=== PATIENT | female | born 1930 | race Caucasian/White ===

== ENCOUNTER 2018-04-28 12:31 | Emergency (ER) | payer MEDICARE, OTHER ==
[~2018-04-28] VITALS: Ht 154.9 cm; Wt 49.9 kg
[~2018-04-28 12:31] MED LIST: AMIT25TA PO; HYDR-971 PO; TRAM50TA PO
[2018-04-28] MEDS ORDERED: diazePAM 5 MG TABLET PO ONE (13:00)
[2018-04-28] MEDS ORDERED: MORPHINE SULFATE 4 MG/ML VIAL. IV ONE (13:00)
--- NOTE | 2018-04-28 13:07 | PHYS DOC ---
Past Medical History Past Medical History: Hypertension Additional Past Medical Histor: CHRONIC BACK PAIN Additional Past Surgical Histo: SEVERAL BACK SX Alcohol Use: None Drug Use: None Adult General Chief Complaint Chief Complaint: BACK PAIN - NO INJURY HPI HPI Patient is an 87-year-old female who presents to the emergency department for evaluation. She has a history of chronic lower back pain, and states that for the past several weeks, she has had gradual worsening of her left lower back pain, radiating down her left leg. She denies any incontinence, numbness, weakness, or saddle anesthesia. She has had a few back surgeries in the past, as well as pain injections, but the injections have not seemed to help improve her symptoms she denies any recent injuries. She denies any fever, chills, dysuria, hematuria, urinary frequency, dizziness, or lightheadedness. Movement and palpation of her back worsen her pain. There are no alleviating factors to her symptoms. She does take hydrocodone for her chronic back pain. Review of Systems Review of Systems Constitutional: Denies fever or chills [] Eyes: Denies change in visual acuity, redness, or eye pain [] HENT: Denies nasal congestion or sore throat [] Respiratory: Denies cough or shortness of breath [] Cardiovascular:The patient denies any shortness of breath, chest pain, palpitations, or orthopnea [] GI: Denies abdominal pain, nausea, vomiting, bloody stools or diarrhea [] : Denies dysuria or hematuria [] Musculoskeletal: Denies neck pain or joint pain [] Integument: Denies rash or skin lesions [] Neurologic: Denies headache, focal weakness or sensory changes [] Endocrine: Denies polyuria or polydipsia [] All other systems were reviewed and found to be within normal limits, except as documented in this note. Current Medications Current Medications Current Medications Medications (Trade) Dose Ordered Sig/Michelle Start Time Stop Time Status Last Admin Dose Admin Diazepam (Valium) 5 mg 1X ONCE 04/28/18 13:00 04/28/18 13:01 DC 04/28/18 13:05 5 MG Morphine Sulfate (Morphine Sulfate) 4 mg 1X ONCE 04/28/18 13:00 04/28/18 13:01 DC 04/28/18 13:21 4 MG Allergies Allergies Allergies Coded Allergies Type Severity Reaction Last Updated Verified Penicillins Allergy Unknown 08/24/13 Yes Physical Exam Physical Exam PHYSICAL EXAM: CONSTITUTIONAL: Well developed, well nourished HEAD: normocephalic, atraumatic EENT: PERRL, EOMI. Conjunctivae normal color, sclerae non-icteric; moist mucous membranes. NECK: Supple, non-tender; no meningismus. LUNGS: Lungs CTA, breathing even and unlabored. Normal air movement. HEART: Regular rate and rhythm, no murmur CHEST: No deformity; non-tender ABDOMEN: The abdomen is soft, there is mild right lower abdominal tenderness to palpation, without rebound or guarding. There are no pulsatile masses palpable, the remainder the abdomen is soft and non-tender, no masses or bruits. EXTREM: Normal ROM; no deformity, no calf tenderness. Normal pulses palpable in all extremities. There is no pedal edema. SKIN: No rash; no diaphoresis NEURO: Alert; normal speech and cognition; CN's grossly intact; strength grossly intact without focal deficit. BACK: No CVA TTP. There is tenderness to palpation left lower sacral area. Straight leg raise is positive on the left at about 50. There is no saddle anesthesia. There is no foot drop. Current Patient Data Vital Signs Vital Signs Date Time Temp Pulse Resp B/P (MAP) Pulse Ox O2 Delivery O2 Flow Rate FiO2 04/28/18 13:21 18 96 Room Air 04/28/18 12:44 98.0 102 147/76 (99) 98.0 Lab Values Laboratory Tests Test 04/28/18 12:34 04/28/18 13:14 Urine Collection Type Unknown Urine Color Yellow Urine Clarity Clear Urine pH 5.0 Urine Specific [place] >=1.030 Urine Protein Negative mg/dL (NEG-TRACE) Urine Glucose (UA) Negative mg/dL (NEG) Urine Ketones (Stick) Negative mg/dL (NEG) Urine Blood Negative (NEG) Urine Nitrite Negative (NEG) Urine Bilirubin Small (NEG) Urine Urobilinogen Dipstick 1.0 mg/dL (0.2 mg/dL) Urine Leukocyte Esterase Moderate (NEG) Urine RBC Occ /HPF (0-2) Urine WBC 5-10 /HPF (0-4) Urine Squamous Epithelial Cells Few /LPF Urine Bacteria Moderate /HPF (0-FEW) Urine Hyaline Casts Many /HPF Urine Mucus Mod /LPF White Blood Count 8.6 x10^3/uL (4.0-11.0) Red Blood Count 4.16 x10^6/uL (3.50-5.40) Hemoglobin 13.0 g/dL (12.0-15.5) Hematocrit 39.0 % (36.0-47.0) Mean Corpuscular Volume 94 fL (79-100) Mean Corpuscular Hemoglobin 31 pg (25-35) Mean Corpuscular Hemoglobin Concent 33 g/dL (31-37) Red Cell Distribution Width 13.6 % (11.5-14.5) Platelet Count 272 x10^3/uL (140-400) Neutrophils (%) (Auto) 68 % (31-73) Lymphocytes (%) (Auto) 22 % (24-48) L Monocytes (%) (Auto) 8 % (0-9) Eosinophils (%) (Auto) 1 % (0-3) Basophils (%) (Auto) 1 % (0-3) Neutrophils # (Auto) 5.9 x10^3uL (1.8-7.7) Lymphocytes # (Auto) 1.9 x10^3/uL (1.0-4.8) Monocytes # (Auto) 0.7 x10^3/uL (0.0-1.1) Eosinophils # (Auto) 0.0 x10^3/uL (0.0-0.7) Basophils # (Auto) 0.1 x10^3/uL (0.0-0.2) Sodium Level 137 mmol/L (136-145) Potassium Level 4.0 mmol/L (3.5-5.1) Chloride Level 101 mmol/L (98-107) Carbon Dioxide Level 27 mmol/L (21-32) Anion Gap 9 (6-14) Blood Urea Nitrogen 18 mg/dL (7-20) Creatinine 1.0 mg/dL (0.6-1.0) Estimated GFR (Cockcroft-Gault) 52.4 BUN/Creatinine Ratio 18 (6-20) Glucose Level 113 mg/dL (70-99) H Calcium Level 9.8 mg/dL (8.5-10.1) Total Bilirubin 0.4 mg/dL (0.2-1.0) Aspartate Amino Transferase (AST) 18 U/L (15-37) Alanine Aminotransferase (ALT) 15 U/L (14-59) Alkaline Phosphatase 62 U/L (46-116) Total Protein 7.4 g/dL (6.4-8.2) Albumin 3.9 g/dL (3.4-5.0) Albumin/Globulin Ratio 1.1 (1.0-1.7) Lipase 63 U/L (73-393) L Laboratory Tests 04/28/18 13:14 Laboratory Tests 04/28/18 13:14 EKG EKG [] Radiology/Procedures Radiology/Procedures [PROCEDURE: CT ABDOMEN PELVIS WO CONTRAST Examination: CT of the abdomen pelvis without contrast HISTORY: History of back pain, right lower quadrant abdominal pain COMPARISON: None available TECHNIQUE: Axial CT images of the abdomen pelvis were performed without contrast. Coronal and sagittal reformats are performed. Exposure: One or more of the following individualized dose reduction techniques were utilized for this examination: 1. Automated exposure control 2. Adjustment of the mA and/or kV according to patient size 3. Use of iterative reconstruction technique FINDINGS: Mild bibasilar lung airspace opacities likely atelectasis or infiltrates. No evidence of free air identified in the abdomen. The evaluation of the solid organs is limited due to lack of IV contrast. The evaluation of bowel is limited due to lack of oral contrast. The visualized noncontrasted liver demonstrates small cystic hypodensity in the left lobe of the liver measuring 4 mm probably cyst however it is difficult to characterize in this examination. The gallbladder is moderately distended. The visualized spleen, adrenals grossly appears unremarkable. The common bile duct appears prominent measuring 8.5 mm in transverse dimension. The stomach is mildly distended. Mild fatty atrophic changes of the pancreas. The small bowel is nondilated. The appendix is normal. Moderate amount of feces and gas noted in the colon. Few sigmoid colon diverticulosis. Urinary bladder is mildly distended. No evidence of intrarenal collecting system calculi or hydronephrosis. Moderate aortic atherosclerosis. Severe degenerative changes bilateral hip joints. Severe compression changes of L5 vertebral body with kyphoplasty changes. Severe degenerative changes identified in the lumbar spine. Lumbar hardware identified at L4-S1 vertebral levels on the left. IMPRESSION: 1. No acute intra-abdominal findings. 2. Moderately distended gallbladder with mild prominent appearing common bile duct. Correlate with lab values. Ultrasound right upper quadrant may be useful if gallbladder pathology or common bile duct pathology suspected. 3. Few sigmoid colon diverticulosis. ] Course & Med Decision Making Course & Med Decision Making Pertinent Labs and Imaging studies reviewed. (See chart for details) [2:25 PM: The patient's condition remains stable. She is feeling significantly better at this time. Her pain has significantly improved. She has been reexamined and is having no right upper quadrant tenderness or pain. I discussed test results with the patient, the need for close PCP follow-up, the possible need for outpatient ultrasound, and return precautions.] Dragon Disclaimer Dragon Disclaimer This electronic medical record was generated, in whole or in part, using a voice recognition dictation system. Departure Departure Impression: Primary Impression: Low back pain Additional Impression: UTI (urinary tract infection) Disposition: HOME, SELF-CARE Condition: STABLE Referrals: GERALD SIMMONS MD (PCP) Patient Instructions: Back Pain, Adult, Urinary Tract Infection Additional Instructions: Ibuprofen 200-400 mg every 6 hours may help improve your symptoms. Applying a heating pad to the affected area may help improve your symptoms. The prescribed medications may cause drowsiness-use caution while taking. Take the newly prescribed pain medications INSTEAD of your previously prescribed hydrocodone, not in addition to it. The gallbladder appeared a little distended on CAT scan today, and would warrant further evaluation with an ultrasound as an outpatient. Contact your primary care provider to arrange an outpatient ultrasound. Scripts Sulfamethoxazole/Trimethoprim (BACTRIM DS TABLET) 1 Each Tablet 1 TAB PO BID for 3 Days, #6 TAB Prov: JARVIS WINTERS MD 04/28/18 Diazepam (VALIUM) 5 Mg Tablet 5 MG PO QID, #20 TAB Prov: JARVIS WINTERS MD 04/28/18 Oxycodone/Apap 5-325 (PERCOCET 5-325 MG TABLET) 1 Each Tablet 1 TAB PO QID, #30 TAB Prov: JARVIS WINTERS MD 04/28/18 Problem Qualifiers JARVIS WINTERS MD Apr 28, 2018 13:07
[2018-04-28 13:33] LABS: BASO # 0.1 x10^3/uL (0.0-0.2); BASO % 1 % (0-3); EOS % 1 % (0-3); LYMPH # 1.9 x10^3/uL (1.0-4.8); LYMPH % 22 % (24-48); MEAN CORPUSCULAR HEMOGLOBIN 31 pg (25-35); MEAN CORPUSCULAR HGB CONC 33 g/dL (31-37); MEAN CORPUSCULAR VOLUME 94 fL (79-100); MONO # 0.7 x10^3/uL (0.0-1.1); MONO % 8 % (0-9); NEUT # 5.9 x10^3uL (1.8-7.7); NEUT % 68 % (31-73); PLATELET COUNT 272 x10^3/uL (140-400); RED BLOOD COUNT 4.16 x10^6/uL (3.50-5.40); RED CELL DISTRIBUTION WIDTH 13.6 % (11.5-14.5); WHITE BLOOD COUNT 8.6 x10^3/uL (4.0-11.0)
[2018-04-28 13:44] LABS: BILIRUBIN,URINE SMALL (NEG); CLARITY,URINE CLEAR; COLOR,URINE YELLOW; NITRITE,URINE NEGATIVE (NEG); PROTEIN,URINE NEGATIVE (NEG-TRACE)
[2018-04-28 14:03] LABS: BACTERIA,URINE MODERATE /HPF (0-FEW); RBC,URINE OCC /HPF (0-2); SQUAMOUS EPITHELIAL CELL,UR FEW /LPF
[2018-04-28 14:04] LABS: HYALINE CASTS, URINE MANY /HPF
--- NOTE | 2018-04-28 14:07 | RAD ---
Examination: CT of the abdomen pelvis without contrast HISTORY: History of back pain, right lower quadrant abdominal pain COMPARISON: None available TECHNIQUE: Axial CT images of the abdomen pelvis were performed without contrast. Coronal and sagittal reformats are performed. Exposure: One or more of the following individualized dose reduction techniques were utilized for this examination: 1. Automated exposure control 2. Adjustment of the mA and/or kV according to patient size 3. Use of iterative reconstruction technique FINDINGS: Mild bibasilar lung airspace opacities likely atelectasis or infiltrates. No evidence of free air identified in the abdomen. The evaluation of the solid organs is limited due to lack of IV contrast. The evaluation of bowel is limited due to lack of oral contrast. The visualized noncontrasted liver demonstrates small cystic hypodensity in the left lobe of the liver measuring 4 mm probably cyst however it is difficult to characterize in this examination. The gallbladder is moderately distended. The visualized spleen, adrenals grossly appears unremarkable. The common bile duct appears prominent measuring 8.5 mm in transverse dimension. The stomach is mildly distended. Mild fatty atrophic changes of the pancreas. The small bowel is nondilated. The appendix is normal. Moderate amount of feces and gas noted in the colon. Few sigmoid colon diverticulosis. Urinary bladder is mildly distended. No evidence of intrarenal collecting system calculi or hydronephrosis. Moderate aortic atherosclerosis. Severe degenerative changes bilateral hip joints. Severe compression changes of L5 vertebral body with kyphoplasty changes. Severe degenerative changes identified in the lumbar spine. Lumbar hardware identified at L4-S1 vertebral levels on the left. IMPRESSION: 1. No acute intra-abdominal findings. 2. Moderately distended gallbladder with mild prominent appearing common bile duct. Correlate with lab values. Ultrasound right upper quadrant may be useful if gallbladder pathology or common bile duct pathology suspected. 3. Few sigmoid colon diverticulosis. Electronically signed by: Donovan Christopher MD (04/28/2018 2:03 PM) [id number]
[2018-04-28 14:15] LABS: CALCIUM 9.8 mg/dL (8.5-10.1); GFR 52.4
[2018-04-28 14:16] LABS: ALBUMIN 3.9 g/dL (3.4-5.0); ALBUMIN/GLOBULIN RATIO 1.1 (1.0-1.7); TOTAL BILIRUBIN 0.4 mg/dL (0.2-1.0); TOTAL PROTEIN 7.4 g/dL (6.4-8.2)
[2018-04-28] MEDS ORDERED: DIAZ5TAB PO ×2 (14:30→14:51)
[2018-04-28] MEDS ORDERED: OXYC-323 PO ×2 (14:30→14:51)
[2018-04-28] MEDS ORDERED: SULF1TAB24 PO ×2 (14:31→14:51)
[2018-04-28 15:15] VITALS: BP 149/71
== END 2018-04-28 15:20 | disposition home or self-care (01) ==
LOC: ER 12:31
DX: N39.0 Urinary tract infection, site not specified (principal); G89.29 Other chronic pain; M54.5 Low back pain; Z98.890 Other specified postprocedural states; I10 Essential (primary) hypertension; Z88.0 Allergy status to penicillin
CPT/HCPCS: 36415; 74176; 80053; 81001; 83690; 85025; 96374; 99285; J2270

== ENCOUNTER → 2018-05-14 | Outpatient (CLI) | payer MEDICARE, OTHER ==
[2018-04-28 15:15] VITALS: BP 149/71
[~2018-05-14] MED LIST changes: +DIAZ5TAB PO; +OXYC-323 PO; +SULF1TAB24 PO
--- NOTE | 2018-05-14 12:16 | KCIC ---
Limited abdominal ultrasound dated 05/14/2018 10:00 AM. Comparison: 04/28/2018 Clinical Indication: Pain . Abnormal CT Findings: Liver is of diffuse increased echogenicity, compatible with fatty infiltration. No apparent hepatic mass. The intrapelvic biliary tree is normal in caliber. The common bile duct is mildly dilated for patient's age measuring up to 9 mm. No apparent filling defect. Gallbladder normal in size and echogenicity. No gallbladder wall thickening or pericholecystic fluid. No gallstones are seen. Right kidney measures 7.1 cm in length, without hydronephrosis. There is a solid-appearing mass at the upper pole measuring up to 1.9 cm in size. Left kidney was not imaged. Limited visualized portions of pancreas aorta and IVC unremarkable. No significant ascites. IMPRESSION: 1. No acute sonographic abnormality. 2. There is a suspected solid mass at the upper pole right kidney that measures up to 1.9 cm in size, possibly a benign or malignant neoplasm. Suggest further evaluation with dedicated renal CT with and without contrast. 3. Mildly dilated extrahepatic biliary tree with no significant intrahepatic ductal dilatation. This could be age related. Recommend correlation with laboratory data. Electronically signed by: Ace Sanchez MD (05/14/2018 12:13 PM) [id number]
== END | disposition home or self-care (01) ==
LOC: KCIC US 09:25
PROVIDERS: ATTEND Family Medicine
DX: R94.8 Abnormal results of function studies of other organs and systems (principal); I10 Essential (primary) hypertension; Z88.0 Allergy status to penicillin
CPT/HCPCS: 76705

== ENCOUNTER 2018-12-16 09:06 | Emergency (ER) | payer MEDICARE ==
[~2018-12-16] VITALS: Ht 154.9 cm; Wt 49.9 kg
[~2018-12-16 09:06] MED LIST changes: +HYDR-3164 PO; -HYDR-971 PO; -OXYC-323 PO; +OXYC1TAB15 PO
[2018-12-16] MEDS ORDERED: diazePAM 5 MG TABLET PO ONE (09:45)
[2018-12-16] MEDS ORDERED: MORPHINE SULFATE 4 MG/ML VIAL. IV ONE (09:45)
[2018-12-16 10:27] LABS: BILIRUBIN,URINE SMALL (NEG); CLARITY,URINE CLEAR; COLOR,URINE AMBER; NITRITE,URINE NEGATIVE (NEG); PROTEIN,URINE 30 mg/dL (NEG-TRACE)
[2018-12-16 10:36] LABS: SQUAMOUS EPITHELIAL CELL,UR MOD /LPF
[2018-12-16 10:37] LABS: BACTERIA,URINE FEW /HPF (0-FEW); RBC,URINE OCC /HPF (0-2)
[2018-12-16 10:38] LABS: AMORPHOUS SEDIMENT,UR PRESENT /HPF
[2018-12-16 12:05] VITALS: BP 147/67
[2018-12-16] MEDS ORDERED: DIAZ5TAB PO (12:12)
[2018-12-16] MEDS ORDERED: HYDR-3164 PO (12:12)
--- NOTE | 2018-12-16 12:12 | PHYS DOC ---
Past Medical History Past Medical History: Arthritis, Hypertension Additional Past Medical Histor: CHRONIC BACK PAIN Additional Past Surgical Histo: SEVERAL BACK SX Alcohol Use: None Drug Use: None Adult General Chief Complaint Chief Complaint: BACK PAIN - NO INJURY HPI HPI Patient is a 88 year old female with a history of arthritis, hypertension, chronic low back pain with multiple surgeries to the lumbar spine, who presents to the ED today complaining of 10 out of 10 bilateral low back pain, patient denies any known injury. Denies any pain radiating to bilateral lower extremities, denies any loss of bowel bladder function. Denies any numbness or tingling to bilateral lower extremities patient is in the ED with the son, the son states patient ran out of hydrocodone yesterday. He states they have an appointment coming up in a couple days. Review of Systems Review of Systems Constitutional: Denies fever or chills [] Eyes: Denies change in visual acuity, redness, or eye pain [] HENT: Denies nasal congestion or sore throat [] Respiratory: Denies cough or shortness of breath [] Cardiovascular: No additional information not addressed in HPI [] GI: Denies abdominal pain, nausea, vomiting, bloody stools or diarrhea [] : Denies dysuria or hematuria [] Musculoskeletal: Reports chronic low back pain Integument: Denies rash or skin lesions [] Neurologic: Denies headache, focal weakness or sensory changes [] All other systems were reviewed and found to be within normal limits, except as documented in this note. Current Medications Current Medications Current Medications Medications (Trade) Dose Ordered Sig/Michelle Start Time Stop Time Status Last Admin Dose Admin Diazepam (Valium) 5 mg 1X ONCE 12/16/18 09:45 12/16/18 09:46 DC 12/16/18 10:22 5 MG Morphine Sulfate (Morphine Sulfate) 4 mg 1X ONCE 12/16/18 09:45 12/16/18 09:46 DC 12/16/18 10:23 4 MG Allergies Allergies Allergies Coded Allergies Type Severity Reaction Last Updated Verified Penicillins Allergy Unknown 08/24/13 Yes Physical Exam Physical Exam Constitutional: Well developed, well nourished, no acute distress, non-toxic appearance. [] HENT: Normocephalic, atraumatic, bilateral external ears normal, oropharynx moist, no oral exudates, nose normal. [] Eyes: PERRLA, EOMI, conjunctiva normal, no discharge. [] Neck: Normal range of motion, no tenderness, supple, no stridor. [] Cardiovascular:Heart rate regular rhythm, no murmur [] Lungs & Thorax: Bilateral breath sounds clear to auscultation [] Abdomen: Bowel sounds normal, soft, no tenderness, no masses, no pulsatile masses. [] Skin: Warm, dry, no erythema, no rash. [] Back: Diffuse paraspinal muscle tenderness bilateral lumbar spine, no midline lumbar spine tenderness, no CVA tenderness. Negative bilateral straight leg raises. Extremities: No tenderness, no cyanosis, no clubbing, ROM intact, no edema. [] Neurologic: Alert and oriented X 3, normal motor function, normal sensory function, no focal deficits noted. [] Psychologic: Affect normal, judgement normal, mood normal. [] Current Patient Data Vital Signs Vital Signs Date Time Temp Pulse Resp B/P (MAP) Pulse Ox O2 Delivery O2 Flow Rate FiO2 12/16/18 12:05 72 16 147/67 (93) 93 Room Air 12/16/18 09:34 98.0 98.0 Lab Values Laboratory Tests Test 12/16/18 10:15 Urine Collection Type Void Urine Color Nora Urine Clarity Clear Urine pH 6.0 Urine Specific [place] >=1.030 Urine Protein 30 mg/dL (NEG-TRACE) Urine Glucose (UA) 250 mg/dL (NEG) Urine Ketones (Stick) 15 mg/dL (NEG) Urine Blood Negative (NEG) Urine Nitrite Negative (NEG) Urine Bilirubin Small (NEG) Urine Urobilinogen Dipstick 1.0 mg/dL (0.2 mg/dL) Urine Leukocyte Esterase Negative (NEG) Urine RBC Occ /HPF (0-2) Urine WBC 1-4 /HPF (0-4) Urine Squamous Epithelial Cells Mod /LPF Urine Amorphous Sediment Present /HPF Urine Bacteria Few /HPF (0-FEW) Urine Mucus Mod /LPF EKG EKG [] Radiology/Procedures Radiology/Procedures [] Course & Med Decision Making Course & Med Decision Making Pertinent Labs and Imaging studies reviewed. (See chart for details) This is a 88-year-old female patient presenting to the ED today with chronic low back pain, no known injury, no cauda equina syndrome symptoms. Patient is in no distress. She ran out of hydrocodone. Prescription was given. She is an appointment with her PCP in a couple days. Urine analysis is negative. Dragon Disclaimer Dragon Disclaimer This electronic medical record was generated, in whole or in part, using a voice recognition dictation system. Departure Departure Impression: Primary Impression: Chronic low back pain Disposition: 01 HOME, SELF-CARE Condition: STABLE Referrals: GERALD SIMMONS MD (PCP) Follow-up in 1-2 weeks Patient Instructions: Back Pain, Adult Additional Instructions: You were evaluated for chronic back pain. Please apply a heating pad to your back. Follow-up with your doctor as soon as possible. Scripts Diazepam (VALIUM) 5 Mg Tablet 5 MG PO DAILY, #15 TAB Prov: MODESTA PALACIO APRN 12/16/18 Hydrocodone/Apap 5-325 (NORCO 5-325 TABLET) 1 Each Tablet 1 TAB PO Q6HRS, #20 TAB Prov: MODESTA PALACIO APRN 12/16/18 Problem Qualifiers Primary Impression: Chronic low back pain Back pain laterality: bilateral Sciatica presence: without sciatica Qualified Codes: M54.5 - Low back pain; G89.29 - Other chronic pain MODESTA PALACIO APRN Dec 16, 2018 12:12
== END 2018-12-16 12:20 | disposition home or self-care (01) ==
LOC: ER 09:06
DX: G89.29 Other chronic pain (principal); M54.5 Low back pain; M19.90 Unspecified osteoarthritis, unspecified site; I10 Essential (primary) hypertension; Z88.0 Allergy status to penicillin
CPT/HCPCS: 81001; 96374; 99284; J2270

== ENCOUNTER 2020-01-14 22:20 | Emergency (ER) | payer MEDICARE ==
[~2020-01-14] VITALS: Ht 157.5 cm; Wt 45.5 kg
[2020-01-14] MEDS ORDERED: OXYC1TAB15 PO (23:11)
--- NOTE | 2020-01-14 23:12 | PHYS DOC ---
Past Medical History Past Medical History: Hypertension Additional Past Medical Histor: CHRONIC BACK PAIN Additional Past Surgical Histo: SEVERAL BACK SX Smoking Status: Unknown if ever smoked Alcohol Use: None Drug Use: None General Adult EDM: Chief Complaint: UPPER EXTREMITY INJURY HPI: HPI: Patient is a 89 year old female who presents with left shoulder pain. Patient states that she was trying to get up and fell hurting her left shoulder. She states she had a initial severe pain and had to yell out for her son for help. She states that the pain is not bad if she holds it in one place. It significantly gets worse that she has to move it around. She denies any numbness. She does not have any weakness in her hand or wrist. She denies losing consciousness or hitting her head. She is not on blood thinners. She denies any syncope, chest pain, shortness of breath, headache. Review of Systems: Review of Systems: General: Denies fever, chills, sweats, fatigue Eyes: Denies drainage, blurred vision HENT: Denies rhinorrhea, sore throat Respiratory: Denies cough, shortness of breath, wheezing Cardiac: Denies edema, palpitations, chest pain GI: Denies abdominal pain, N/V MSK: Denies back pain, neck pain reports shoulder pain Skin: Denies rash, jaundice Neuro: Denies headache, dizziness Psychiatric: Denies SI/HI Heart Score: Risk Factors: Risk Factors: DM, Current or recent (<one month) smoker, HTN, HLP, family history of CAD, obesity. Risk Scores: Score 0 - 3: 2.5% MACE over next 6 weeks - Discharge Home Score 4 - 6: 20.3% MACE over next 6 weeks - Admit for Clinical Observation Score 7 - 10: 72.7% MACE over next 6 weeks - Early Invasive Strategies Allergies: Allergies: Allergies Coded Allergies Type Severity Reaction Last Updated Verified Penicillins Allergy Unknown 08/24/13 Yes Physical Exam: PE: Constitutional: Well developed, well nourished, Cooperative, NAD, non-toxic appearing HEENT: Normocephalic, atraumatic, oropharynx moist, EOMI, PERRL, no drainage from eyes, normal conjunctiva Neck: Supple, normal range of motion, no stridor Cardiovascular: RRR, 2+ radial pulses bilaterally, no edema Respiratory: CTA bilaterally, no respiratory distress, no wheezing/crackles Abdomen: Soft, nontender, nondistended, no masses Skin: Warm, dry, intact Extremities: Left shoulder deformity with tenderness. No bruising or significant swelling. Intact range of motion of elbow, wrist, hand. No sensation changes. Normal cap refill distal to the deformity. Neurologic: Alert and Oriented x3, motor and sensory function grossly normal, no focal deficits Psychologic: Normal affect, normal judgment, normal mood. No SI/HI EKG: EKG: [] Radiology/Procedures: Radiology/Procedures: [] Impression: Patient is an 89-year-old female presents the emergency room complaining shoulder pain after a fall. Patient has intact distal range of motion, sensation, capillary refill. X-ray was ordered and shows a humerus fracture. Patient will be placed in a sling. She would like to go home. She will be discharged home with follow-up with orthopedic surgery. Patient was given Percocet for pain relief at home. She does not want any thing for pain here. Patient was hypertensive which is likely secondary to pain and her chronic hypertension. She does not have any symptoms of endorgan damage including chest pain, shortness of breath, headache, blurred vision, decreased urination, numbness, weakness. At this time she does not need treatment for her high blood pressure as she has asymptomatic high blood pressure and treatment is not recommended. Patient's test results and vitals while in the ED were fully reviewed and discussed with the patient. Patient is stable and at this time does not need admission to the hospital. We have discussed strict return precautions and the importance of following up with their Primary Care Physician. Patient stated understanding and was given an opportunity to ask any questions. Course & Med Decision Making: Course & Med Decision Making Pertinent Labs and Imaging studies reviewed. (See chart for details) [] Dragon Disclaimer: Dragon Disclaimer: This electronic medical record was generated, in whole or in part, using a voice recognition dictation system. Departure Departure Impression: Primary Impression: Humerus fracture Disposition: HOME, SELF-CARE Referrals: GERALD SIMMONS MD (PCP) CHIKI DHILLON II, MD Patient Instructions: Humerus Fracture, Treated with Immobilization Scripts Oxycodone/Apap 5-325 (PERCOCET 5-325 MG TABLET ) 1 Each Tablet 1 TAB PO PRN Q6HRS PRN for PAIN, #12 TAB 0 Refills Prov: JEN BORJA MD 01/14/20 JEN BORJA MD Jan 14, 2020 23:12
--- NOTE | 2020-01-14 23:15 | RAD ---
EXAM: 3 views left shoulder DATE: 01/14/2020 10:43 PM INDICATION: Left shoulder pain COMPARISON: No Prior FINDINGS: Transverse fracture through the surgical neck of the left humerus is mildly displaced. 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 Humeral head is high riding suggesting underlying rotator cuff tear or tendinosis. IMPRESSION: Transverse fracture through the surgical neck of the left humerus, displaced. Electronically signed by: Nik May MD (01/14/2020 11:12 PM) [facility]
[2020-01-14 23:24] VITALS: BP 168/101
== END 2020-01-14 23:26 | disposition home or self-care (01) ==
LOC: ER 22:20
DX: S42.212A Unspecified displaced fracture of surgical neck of left humerus, initial encounter for closed fracture (principal); I10 Essential (primary) hypertension; G89.29 Other chronic pain; Z88.0 Allergy status to penicillin; W18.39XA Other fall on same level, initial encounter; Y93.89 Activity, other specified; Y92.89 Other specified places as the place of occurrence of the external cause; Y99.8 Other external cause status
CPT/HCPCS: 73030; 99284; A4565